=== PATIENT | male | born 1990 | race African-American/Black ===

== ENCOUNTER 2022-09-03 12:28 | Inpatient (IN) | payer OTHER, SELFPAY ==
[2022-09-03] VITALS (10 sets, daily range): BP systolic 114–162; BP diastolic 56–83; PULSE 66–88; RESP 15–18; TEMP 36.3–36.9; O2SAT 95–100; BMI 30.8; BMI 29.7
[2022-09-03 12:56] LABS: Add Manual Diff / Slide Review NO; Basophils Absolute Auto 100 /uL (0-100); Basophils Percent Auto 0.6 % (0-2); Eosinophils Absolute Auto 100 /uL (0-450); Eosinophils Percent Auto 0.6 % (2-4); Hematocrit 36.7 % (41-53); Hemoglobin 11.7 g/dL (13.5-17.5); Lymphocytes Absolute Auto 1700 /uL (1100-4500); Lymphocytes Percent Auto 11.6 % (25-40); Mean Corpuscular Hemoglobin 25.5 PG (26-34); Mean Corpuscular Volume 79.9 fL (80-100); Monocytes Absolute Auto 1200 /uL (0-900); Monocytes Percent Auto 7.9 % (3-14); Neutrophils Absolute Auto 11600 /uL (1500-7000); Neutrophils Percent Auto 79.3 % (50-75); Platelet Count 432 X10^3/uL (150-400); Red Blood Cell Count 4.59 X10^6/uL (4.5-5.9); Red Cell Distribution Width 14.5 % (11.6-14.8); White Blood Cell Count 14.7 X10^3/uL (4.5-11.0)
[2022-09-03 13:23] LABS: Alanine Aminotransferase 19 IU/L (<50); Albumin 4.5 g/dL (3.5-5.0); Alkaline Phosphatase 84 U/L (38-126); Aspartate Aminotransferase 21 IU/L (17-59); BUN Creatinine Ratio 11.5 (6-22); Bilirubin Total 0.6 mg/dL (0.2-1.3); Blood Urea Nitrogen 11 mg/dL (9-20); Calcium 9.4 mg/dL (8.4-10.2); Carbon Dioxide 28 mmol/L (22-32); Chloride 102 mmol/L (98-107); Estimated Glomerular Filt Rate > 60 mL/min (>60); Globulin 4.7 g/dL (1.7-4.1); Glucose 99 mg/dL (70-100); HEMOLYSIS < 15 (0-50); Lipase 83 U/L (23-300); Potassium 4.2 mmol/L (3.4-5.1); Sodium 142 mmol/L (137-145); Total Protein 9.2 g/dL (6.3-8.2)
--- NOTE | 2022-09-03 13:55 | DI.CT.S_ITS ---
PROCEDURE: CT ABDOMEN PELVIS W CON INDICATIONS: rule out appendicitis TECHNIQUE: After the administration of intravenous contrast, axial sections acquired from the lung bases to the pubic symphysis. Coronal and sagittal reformats were performed. For radiation dose reduction, the following was used: automated exposure control, adjustment of mA and/or kV according to patient size. COMPARISON: None. FINDINGS: Image quality: Excellent. Lung bases: Unremarkable. Heart: No significant findings. ABDOMEN: Liver: Unremarkable. Gallbladder: Gallbladder may contain depending gravel. No gallbladder wall thickening. Biliary ducts: Unremarkable. Pancreas: Unremarkable. Spleen: Unremarkable. Adrenal Glands: Unremarkable. Kidneys and Ureters: Unremarkable. Stomach and Bowel: There is extensive inflammatory change present in the right lower quadrant which appears to involve the cecum and distal ileum. Consider ruptured appendicitis. Also possible is distal ileitis and proximal colitis. The appendix is not with likely identified. Peritoneum: There is mild free fluid deep in the pelvis. No free air. Ventral Wall: No hernias. Abdominal Nodes: No retroperitoneal or mesenteric adenopathy by size criteria. Vessels: Aorta and inferior vena cava are normal in size. PELVIS: Pelvic Organs: Unremarkable. Bladder: Unremarkable. Pelvic Nodes: No enlarged lymph nodes. Miscellaneous: No hernias are seen. Bones: Unremarkable. IMPRESSION: 1. Extensive inflammation involving the cecum and distal ileum and surrounding fat in the right lower quadrant with associated free fluid in the pelvis. Suspect ruptured appendicitis. Also possible is distal ileitis and proximal colitis, possibly secondary to infectious or inflammatory etiologies. 2. There may be gravel in the gallbladder. Comment: Repeat imaging after oral contrast is administered, utilizing both oral and intravenous contrast may be helpful. Dictated by: Boogie Duke M.D. on 09/03/2022 at 14:40 Approved by: Boogie Duke M.D. on 09/03/2022 at 14:45
--- NOTE | 2022-09-03 14:55 | ED.ABDPAIN ---
HPI - Abdominal Pain <Omar Waddell PA-C - Last Filed: 09/03/22 15:17> General Chief Complaint: Abdominal Pain Stated Complaint: Possible Appe/Sent from [facility] Time Seen by Provider: 09/03/22 14:19 Source: patient Mode of arrival: Ambulatory History of Present Illness HPI narrative: This is an otherwise healthy 32-year-old male presents to the emergency department due to 3 days of right lower quadrant abdominal pain. Denies any fevers, nausea, vomiting, or any other concerning signs or symptoms. Sent here by [facility] to rule out appendicitis. Last ate breakfast at approximately 7:30 a.m. this morning. Related Data Home Medications Medication Instructions Recorded Confirmed acetaminophen 325 mg tablet 325 mg PO PRN PRN Pain (Scale 09/03/22 09/03/22 Score 1-3) ibuprofen 800 mg tablet 800 mg PO PRN PRN Pain (Scale 09/03/22 09/03/22 Score 1-3) Previous Rx's Medication Instructions Recorded amoxicillin 500 mg-potassium 1 tab PO BID #14 tabs 09/04/22 clavulanate 125 mg tablet (Augmentin) Allergies Allergy/AdvReac Type Severity Reaction Status Date / Time No Known Drug Allergies Allergy Verified 09/03/22 12:40 Review of Systems <Omar Waddell PA-C - Last Filed: 09/03/22 15:17> Review of Systems Narrative: GENERAL: Denies chills, fatigue, malaise, fever, sweats. HEENT: Denies sinus pain, ear pain, sore throat, difficulty swallowing, dizziness. RESPIRATORY: Denies dyspnea, cough, wheezing, hemoptysis, sputum. CARDIOVASCULAR: Denies chest pain, palpitations, orthopnea, edema, GASTROINTESTINAL: Right lower quadrant abdominal pain : Denies dysuria, frequency, incontinence, hematuria, urinary retention. MUSCULOSKELETAL: denies weakness, joint pain, or bony pain SKIN: Denies rash, skin lesions, or other NEUROLOGIC: Denies weakness, headache, numbness, change in speech, confusion, seizures, incoordination. PSYCHIATRIC: No concerning psychosocial issues. 12 point review of systems is negative except for those stated above Patient History <Omar Waddell PA-C - Last Filed: 09/03/22 15:17> Social History household members: spouse Smoking Status: Never smoker alcohol intake: current Smoking Status: Unknown if ever smoked alcohol intake frequency: holidays/special occasions only Substance Use Type: does not use Exam <Omar Waddell PA-C - Last Filed: 09/03/22 15:17> Narrative Exam Narrative: GENERAL: Well-developed patient, in mild distress. HEAD: Atraumatic. Normocephalic. EYES: Pupils equal round and reactive. Extraocular motions intact. No scleral icterus. No injection or drainage. ENT: Nose without bleeding, purulent drainage. Throat without erythema, tonsillar hypertrophy or exudate. Airway patent. NECK: Trachea midline. Non tender CARDIOVASCULAR: Regular rate and rhythm without murmurs, gallops, or rubs. RESPIRATORY: Clear to auscultation. Breath sounds equal bilaterally. No wheezes, rales, or rhonchi. GASTROINTESTINAL: Moderate tenderness to palpation to the right lower quadrant, nondistended EXTREMITIES: No edema or joint tenderness. BACK: Nontender without deformity or crepitance. No flank tenderness. NEURO: AOx3. SKIN: No rash or erythema of visible areas Initial Vital Signs Initial Vital Signs: Vital Signs Temperature 98.5 F 09/03/22 12:40 Pulse Rate 73 09/03/22 12:40 Respiratory Rate 15 09/03/22 12:40 Blood Pressure 162/69 H 09/03/22 12:40 Pulse Oximetry 99 09/03/22 12:40 Oxygen Delivery Method 09/03/22 12:40 <Monico Deleon MD - Last Filed: 09/09/22 09:16> Initial Vital Signs Initial Vital Signs: Vital Signs Temperature 98.5 F 09/03/22 12:40 Pulse Rate 73 09/03/22 12:40 Respiratory Rate 15 09/03/22 12:40 Blood Pressure 162/69 H 09/03/22 12:40 Pulse Oximetry 99 09/03/22 12:40 Oxygen Delivery Method 09/03/22 12:40 Course <Omar Waddell PA-C - Last Filed: 09/03/22 15:17> Orders Ordered: Discontinued Medications Acetaminophen (Acetaminophen 325 Mg Tablet) 650 mg PO Q6H [facility] Last Admin: 09/04/22 10:38 Dose: Not Given Documented By: Admin: 09/04/22 06:29 Dose: Not Given Documented By: Admin: 09/03/22 23:36 Dose: Not Given Documented By: Admin: 09/03/22 17:22 Dose: 650 mg Documented By: DARLENE Hydromorphone HCl (Hydromorphone 0.5 Mg Inj) 0.5 mg IV Q2H PRN PRN Reason: Pain, Moderate (4-6) Sodium Chloride (Normal Saline 0.9%) 1,000 mls @ 1,000 mls/hr IV BOLUS ONE Stop: 09/03/22 15:53 Last Infusion: 09/03/22 16:10 Dose: 0 mls/hr Documented By: Admin: 09/03/22 15:05 Dose: 1,000 mls/hr Documented By: MEGAN Piperacillin Sod/Tazobactam (Sod 4.5 gm/ Sodium Chloride) 100 mls @ 200 mls/hr IV NOW ONE Stop: 09/03/22 14:55 Last Infusion: 09/03/22 16:43 Dose: 0 mls/hr Documented By: Admin: 09/03/22 16:01 Dose: 200 mls/hr Documented By: MEGAN Piperacillin Sod/Tazobactam (Sod 3.375 gm/ Sodium Chloride) 100 mls @ 25 mls/hr IV Q8H [facility] Last Infusion: 09/04/22 13:20 Dose: 0 mls/hr Documented By: Admin: 09/04/22 08:23 Dose: 25 mls/hr Documented By: Infusion: 09/04/22 05:00 Dose: 0 mls/hr Documented By: Admin: 09/04/22 00:53 Dose: 25 mls/hr Documented By: Infusion: 09/03/22 21:25 Dose: 0 mls/hr Documented By: Admin: 09/03/22 17:21 Dose: 25 mls/hr Documented By: DARLENE Ketorolac Tromethamine (Ketorolac 30 Mg/Ml Vial) 30 mg IV Q8H [facility] Stop: 09/08/22 16:49 Last Admin: 09/04/22 08:22 Dose: 30 mg Documented By: Admin: 09/04/22 00:54 Dose: 30 mg Documented By: Admin: 09/03/22 17:21 Dose: 30 mg Documented By: DARLENE Naloxone HCl (Naloxone 0.4 Mg/Ml Vial) 0.2 mg IV Q2MIN PRN PRN Reason: Opiate Reversal Ondansetron HCl (Ondansetron 4 Mg/2 Ml Inj) 4 mg IV Q8HR PRN PRN Reason: Nausea And Vomiting Oxycodone HCl (Oxycodone Ir 5 Mg Tablet) 5 mg PO Q3H PRN PRN Reason: Pain, Moderate (4-6) Vital Signs Vital signs: Vital Signs - 8 hr 09/03/22 12:40 09/03/22 14:22 09/03/22 14:22 Temperature 98.5 F Pulse Rate 73 72 Respiratory Rate 15 Blood Pressure 162/69 H 126/59 L Pulse Oximetry 99 98 Oxygen Delivery Method Room Air 09/03/22 14:30 09/03/22 14:30 Temperature Pulse Rate 83 Respiratory Rate Blood Pressure 116/56 L Pulse Oximetry 99 Oxygen Delivery Method <Monico Deleon MD - Last Filed: 09/09/22 09:16> Orders Ordered: Discontinued Medications Acetaminophen (Acetaminophen 325 Mg Tablet) 650 mg PO Q6H [facility] Last Admin: 09/04/22 10:38 Dose: Not Given Documented By: Admin: 09/04/22 06:29 Dose: Not Given Documented By: Admin: 09/03/22 23:36 Dose: Not Given Documented By: Admin: 09/03/22 17:22 Dose: 650 mg Documented By: ARCHANAK Hydromorphone HCl (Hydromorphone 0.5 Mg Inj) 0.5 mg IV Q2H PRN PRN Reason: Pain, Moderate (4-6) Sodium Chloride (Normal Saline 0.9%) 1,000 mls @ 1,000 mls/hr IV BOLUS ONE Stop: 09/03/22 15:53 Last Infusion: 09/03/22 16:10 Dose: 0 mls/hr Documented By: Admin: 09/03/22 15:05 Dose: 1,000 mls/hr Documented By: RB Piperacillin Sod/Tazobactam (Sod 4.5 gm/ Sodium Chloride) 100 mls @ 200 mls/hr IV NOW ONE Stop: 09/03/22 14:55 Last Infusion: 09/03/22 16:43 Dose: 0 mls/hr Documented By: Admin: 09/03/22 16:01 Dose: 200 mls/hr Documented By: MEGAN Piperacillin Sod/Tazobactam (Sod 3.375 gm/ Sodium Chloride) 100 mls @ 25 mls/hr IV Q8H [facility] Last Infusion: 09/04/22 13:20 Dose: 0 mls/hr Documented By: Admin: 09/04/22 08:23 Dose: 25 mls/hr Documented By: Infusion: 09/04/22 05:00 Dose: 0 mls/hr Documented By: Admin: 09/04/22 00:53 Dose: 25 mls/hr Documented By: Infusion: 09/03/22 21:25 Dose: 0 mls/hr Documented By: Admin: 09/03/22 17:21 Dose: 25 mls/hr Documented By: DARLENE Ketorolac Tromethamine (Ketorolac 30 Mg/Ml Vial) 30 mg IV Q8H [facility] Stop: 09/08/22 16:49 Last Admin: 09/04/22 08:22 Dose: 30 mg Documented By: Admin: 09/04/22 00:54 Dose: 30 mg Documented By: Admin: 09/03/22 17:21 Dose: 30 mg Documented By: DARLENE Naloxone HCl (Naloxone 0.4 Mg/Ml Vial) 0.2 mg IV Q2MIN PRN PRN Reason: Opiate Reversal Ondansetron HCl (Ondansetron 4 Mg/2 Ml Inj) 4 mg IV Q8HR PRN PRN Reason: Nausea And Vomiting Oxycodone HCl (Oxycodone Ir 5 Mg Tablet) 5 mg PO Q3H PRN PRN Reason: Pain, Moderate (4-6) Vital Signs Vital signs: Vital Signs - 8 hr 09/03/22 12:40 09/03/22 14:22 09/03/22 14:22 Temperature 98.5 F Pulse Rate 73 72 Respiratory Rate 15 Blood Pressure 162/69 H 126/59 L Pulse Oximetry 99 98 Oxygen Delivery Method Room Air 09/03/22 14:30 09/03/22 14:30 Temperature Pulse Rate 83 Respiratory Rate Blood Pressure 116/56 L Pulse Oximetry 99 Oxygen Delivery Method MDM - Abdominal Pain <Omar Waddell PA-C - Last Filed: 09/03/22 15:17> Lab Data 09/03/22 12:45 09/03/22 12:45 Labs: Lab Results 09/03/22 09/03/22 09/03/22 Range/Units 12:45 12:45 15:15 WBC 14.7 H (4.5-11.0) X10^3/uL RBC 4.59 (4.5-5.9) X10^6/uL Hgb 11.7 L (13.5-17.5) g/dL Hct 36.7 L (41-53) % MCV 79.9 L (80-100) fL MCH 25.5 L (26-34) PG MCHC 32.0 (30-36) % RDW 14.5 (11.6-14.8) % Plt Count 432 H (150-400) X10^3/uL Neut % (Auto) 79.3 H (50-75) % Lymph % (Auto) 11.6 L (25-40) % [place] % (Auto) 7.9 (3-14) % Eos % (Auto) 0.6 L (2-4) % Baso % (Auto) 0.6 (0-2) % Neut # (Auto) 66418 H (5112-3815) /uL Lymph # (Auto) 1700 (6413-4520) /uL [place] # (Auto) 1200 H (0-900) /uL Eos # (Auto) 100 (0-450) /uL Baso # (Auto) 100 (0-100) /uL Sodium 142 (137-145) mmol/L Potassium 4.2 (3.4-5.1) mmol/L Chloride 102 (98-107) mmol/L Carbon Dioxide 28 (22-32) mmol/L BUN 11 (9-20) mg/dL Creatinine 0.96 (0.66-1.25) mg/dL Estimated GFR > 60 (>60) mL/min BUN/Creatinine Ratio 11.5 (6-22) Glucose 99 (70-100) mg/dL Calcium 9.4 (8.4-10.2) mg/dL Total Bilirubin 0.6 (0.2-1.3) mg/dL AST 21 (17-59) IU/L ALT 19 (<50) IU/L Alkaline Phosphatase 84 (38-126) U/L Total Protein 9.2 H (6.3-8.2) g/dL Albumin 4.5 (3.5-5.0) g/dL Globulin 4.7 H (1.7-4.1) g/dL Albumin/Globulin Ratio 1.0 (1.0-2.8) Lipase 83 (23-300) U/L SARS-CoV-2 (PCR) Negative (Negative) Point of care testing: Urine Dip Bedside Urine Glucose Negative Bedside Urine Bilirubin - Negative Bedside Urine Ketone - Negative Urine Specific [place] 1.015 Bedside Urine Occult Blood - Negative Bedside Urine pH 6.0 Bedside Urine Protein - Negative Bedside Urine Urobilinogen - Negative Bedside Urine Nitrite - Negative Bedside Urine Leukocytes - Negative Esterase Imaging Data CT scan - abdomen/pelvis: Radiologist's Impression: [address] [address] [address] Scan Report Signed Patient: Chris Pollard MR#: [id number] : 1990 Acct:[id number] Age/Sex: 32 / M Date of Service: 09/03/22 Loc: ED Accession Number: [id number] ?? Procedure: CT abdomen pelvis w con Ordering Provider: Monico Deleon MD PROCEDURE:? CT ABDOMEN PELVIS W CON ? INDICATIONS:? rule out appendicitis ? TECHNIQUE:? After the administration of intravenous contrast, axial sections acquired from the lung bases to the pubic symphysis.? Coronal and sagittal reformats were performed.? For radiation dose reduction, the following was used:? automated exposure control, adjustment of mA and/or kV according to patient size.? ? COMPARISON:? None. ? FINDINGS:? Image quality:? Excellent.? ? Lung bases:? Unremarkable. Heart:? No significant findings. ? ABDOMEN: Liver:? Unremarkable.? ? Gallbladder:? Gallbladder may contain depending gravel.? No gallbladder wall thickening. Biliary ducts:? Unremarkable.? ? Pancreas:? Unremarkable.? ? Spleen:? Unremarkable.? ? Adrenal Glands:? Unremarkable.? ? Kidneys and Ureters:? Unremarkable.? ? ? Stomach and Bowel:? There is extensive inflammatory change present in the right lower quadrant which appears to involve the cecum and distal ileum.? Consider ruptured appendicitis.? Also possible is distal ileitis and proximal colitis.? The appendix is not with likely identified. Peritoneum:? There is mild free fluid deep in the pelvis.? No free air.? ? Ventral Wall: ? No hernias.? Abdominal Nodes:? No retroperitoneal or mesenteric adenopathy by size criteria.? Vessels:? Aorta and inferior vena cava are normal in size.? ? PELVIS: Pelvic Organs:? Unremarkable.? ? Bladder:? Unremarkable.? ? Pelvic Nodes: No enlarged lymph nodes.? Miscellaneous: No hernias are seen. ? ? ? Bones:? Unremarkable.? IMPRESSION:? ? 1. Extensive inflammation involving the cecum and distal ileum and surrounding fat in the right lower quadrant with associated free fluid in the pelvis.? Suspect ruptured appendicitis.? Also possible is distal ileitis and proximal colitis, possibly secondary to infectious or inflammatory etiologies.? ? 2. There may be gravel in the gallbladder. ? Comment:? Repeat imaging after oral contrast is administered, utilizing both oral and intravenous contrast may be helpful.? ? Dictated by: Boogie Duke M.D. on 09/03/2022 at 14:40 ? ? Approved by: Boogie Duke M.D. on 09/03/2022 at 14:45 ? MDM Narrative Medical decision making narrative: MDM * differential diagnosis includes but not limited to appendicitis, gastroenteritis, cholecystitis * Prior records reviewed: None to review * My lab interpretation: Lab work significant for leukocytosis * My imgaing interpretation: CT showed findings concerning for ruptured appendix * Clinical Decision Rules/Scores evaluated: None * Independent discussions with: Discussed the case with general surgeon, Dr. Badilol ED Course: This is a 32-year-old male presents to the emergency department due to 3 day history of right lower quadrant pain. CT was ordered which showed the above findings concerning for ruptured appendix. Zosyn and fluids given. This was discussed with Dr. Badillo, general surgeon, who kindly accepted the patient for admission. Shared Decision Making: Discussed plan with patient who is comfortable with plan Social Considerations: None Disposition: Admit to General surgery <Monico Deleon MD - Last Filed: 09/09/22 09:16> Lab Data Labs: Lab Results 09/03/22 09/03/22 09/03/22 Range/Units 12:45 12:45 15:15 WBC 14.7 H (4.5-11.0) X10^3/uL RBC 4.59 (4.5-5.9) X10^6/uL Hgb 11.7 L (13.5-17.5) g/dL Hct 36.7 L (41-53) % MCV 79.9 L (80-100) fL MCH 25.5 L (26-34) PG MCHC 32.0 (30-36) % RDW 14.5 (11.6-14.8) % Plt Count 432 H (150-400) X10^3/uL Neut % (Auto) 79.3 H (50-75) % Lymph % (Auto) 11.6 L (25-40) % [place] % (Auto) 7.9 (3-14) % Eos % (Auto) 0.6 L (2-4) % Baso % (Auto) 0.6 (0-2) % Neut # (Auto) 11478 H (8000-0856) /uL Lymph # (Auto) 1700 (6121-1787) /uL [place] # (Auto) 1200 H (0-900) /uL Eos # (Auto) 100 (0-450) /uL Baso # (Auto) 100 (0-100) /uL Sodium 142 (137-145) mmol/L Potassium 4.2 (3.4-5.1) mmol/L Chloride 102 (98-107) mmol/L Carbon Dioxide 28 (22-32) mmol/L BUN 11 (9-20) mg/dL Creatinine 0.96 (0.66-1.25) mg/dL Estimated GFR > 60 (>60) mL/min BUN/Creatinine Ratio 11.5 (6-22) Glucose 99 (70-100) mg/dL Calcium 9.4 (8.4-10.2) mg/dL Total Bilirubin 0.6 (0.2-1.3) mg/dL AST 21 (17-59) IU/L ALT 19 (<50) IU/L Alkaline Phosphatase 84 (38-126) U/L Total Protein 9.2 H (6.3-8.2) g/dL Albumin 4.5 (3.5-5.0) g/dL Globulin 4.7 H (1.7-4.1) g/dL Albumin/Globulin Ratio 1.0 (1.0-2.8) Lipase 83 (23-300) U/L SARS-CoV-2 (PCR) Negative (Negative) Point of care testing: Urine Dip Bedside Urine Glucose Negative Bedside Urine Bilirubin - Negative Bedside Urine Ketone - Negative Urine Specific [place] 1.015 Bedside Urine Occult Blood - Negative Bedside Urine pH 6.0 Bedside Urine Protein - Negative Bedside Urine Urobilinogen - Negative Bedside Urine Nitrite - Negative Bedside Urine Leukocytes - Negative Esterase Discharge Plan Departure Patient Disposition: Admitted to Surgery Clinical Impression: Acute perforated appendicitis Admit Date/Time: 09/03/22 15:16 Admit Provider: Samir Badillo <Monico Deleon MD - Last Filed: 09/09/22 09:16> Cosign ED Attending Cosignature Attestation: I was immediately available in the department for consultation. ?This documentation has been reviewed and I agree with assessment and plan. Supervised by Monico Deleon MD
[2022-09-03] MEDS: SODIUM CHLORIDE 0.9% 1,000 ML 1000 ML IV (15:05)
[2022-09-03] MEDS: PIPERACILLIN/TAZO 4.5 GM in SODIUM CHLORIDE 0.9% 100 ML IV (16:01)
[2022-09-03 16:34] LABS: COVID19 -Nasal RAPID Negative (Negative)
[2022-09-03 16:55] LABS: Lactate (Lactic Acid) 1.6 mmol/L (0.7-2.1)
--- NOTE | 2022-09-03 17:15 | PM.HP.1 ---
History of Present Illness History of Present Illness Date Patient Seen: 09/03/22 Time Patient Seen: 17:15 Chief complaint: Possible Appe/Sent from [facility] Narrative: Mr. Pollard is a healthy 32-year-old man who is admitted for acute appendicitis with perforation. Over the past several days he developed abdominal pain becoming significantly worse today and within the right lower quadrant. Emergency room workup demonstrates a WBC 15, CT abdomen pelvis demonstrates perforated appendicitis with moderate amount of free fluid, phlegmon without abscess and significant inflammation of the ileum and cecum. No prior abdominal surgeries. Patient History Family & Social History Social History: household members spouse Prior Living Arrangements House Safety & Behavioral: Feels Safe in Current Yes Environment Been Physically Hurt or No Threatened By a Person Tobacco & Substance use: Smoking Status Never smoker alcohol intake current alcohol intake frequency holiday/special occasion Substance Use Type does not use Meds Home Medications and Allergies Allergies Allergy/AdvReac Type Severity Reaction Status Date / Time No Known Drug Allergies Allergy Verified 09/03/22 12:40 Exam Vital Signs (past 8 hours): - 09/03/22 12:40 09/03/22 14:22 09/03/22 14:22 Temperature 98.5 F Pulse Rate 73 72 Respiratory Rate 15 Blood Pressure 162/69 H 126/59 L Pulse Oximetry 99 98 Oxygen Delivery Method Room Air 09/03/22 14:30 09/03/22 14:30 09/03/22 14:47 Temperature Pulse Rate 83 Respiratory Rate Blood Pressure 116/56 L 126/58 L Pulse Oximetry 99 Oxygen Delivery Method 09/03/22 14:47 09/03/22 15:00 09/03/22 15:00 Temperature Pulse Rate 74 70 Respiratory Rate Blood Pressure 128/60 Pulse Oximetry 95 100 Oxygen Delivery Method 09/03/22 16:04 09/03/22 16:04 09/03/22 16:30 Temperature Pulse Rate 87 87 Respiratory Rate Blood Pressure 130/83 Pulse Oximetry 100 100 Oxygen Delivery Method 09/03/22 16:31 09/03/22 16:31 Temperature Pulse Rate 88 Respiratory Rate Blood Pressure 126/63 Pulse Oximetry 99 Oxygen Delivery Method Oxygen Delivery Method Room Air Narrative Exam Narrative: GENERAL: A well nourished, well developed gentleman appearing stated age, resting comfortably, in no acute distress. HEENT: Normocephalic, atraumatic. No scleral icterus NECK: Full range of motion. No evidence of cervical lymphadenopathy or JVD. CHEST: Rising symmetrically. No audible wheezes CARDIOVASCULAR: Warm and well perfused. Regular rate ABDOMEN: Focal peritonitis right lower quadrant d EXTREMITIES: Normal tone and without edema. NEUROLOGIC: Moving all extremities spontaneously. No gross motor deficits. Objective Labs 09/03/22 12:45 09/03/22 12:45 Labs: Laboratory Results - last 24 hr 09/03/22 09/03/22 09/03/22 12:45 12:45 15:15 WBC 14.7 H RBC 4.59 Hgb 11.7 L Hct 36.7 L MCV 79.9 L MCH 25.5 L MCHC 32.0 RDW 14.5 Plt Count 432 H Neut % (Auto) 79.3 H Lymph % (Auto) 11.6 L [place] % (Auto) 7.9 Eos % (Auto) 0.6 L Baso % (Auto) 0.6 Neut # (Auto) 58520 H Lymph # (Auto) 1700 [place] # (Auto) 1200 H Eos # (Auto) 100 Baso # (Auto) 100 Sodium 142 Potassium 4.2 Chloride 102 Carbon Dioxide 28 BUN 11 Creatinine 0.96 Estimated GFR > 60 BUN/Creatinine Ratio 11.5 Glucose 99 Lactate Calcium 9.4 Total Bilirubin 0.6 AST 21 ALT 19 Alkaline Phosphatase 84 Total Protein 9.2 H Albumin 4.5 Globulin 4.7 H Albumin/Globulin Ratio 1.0 Lipase 83 SARS-CoV-2 (PCR) Negative 09/03/22 15:45 WBC RBC Hgb Hct MCV MCH MCHC RDW Plt Count Neut % (Auto) Lymph % (Auto) [place] % (Auto) Eos % (Auto) Baso % (Auto) Neut # (Auto) Lymph # (Auto) [place] # (Auto) Eos # (Auto) Baso # (Auto) Sodium Potassium Chloride Carbon Dioxide BUN Creatinine Estimated GFR BUN/Creatinine Ratio Glucose Lactate 1.6 Calcium Total Bilirubin AST ALT Alkaline Phosphatase Total Protein Albumin Globulin Albumin/Globulin Ratio Lipase SARS-CoV-2 (PCR) Assessment & Plan Assessment and plan (1) Acute perforated appendicitis: Status: Acute Assessment & Plan narrative: 32-year-old man with symptoms and radiographic findings consistent with acute perforated appendicitis. CT personally reviewed demonstrates acute appendicitis with phlegmon and free fluid no drainable abscess. We discussed management of acute appendicitis including both medical and surgical therapy. Following discussion preference is to proceed with antibiotic therapy. -clear liquid diet -Zosyn -SCDs Time Spent With Patient Critical Care time: I spent a total of [] minutes of critical care time on this patient's care today; this time is exclusive of procedural time. Quality VTE Deep Vein Thrombosis/Pulmonary Embolism Present on Admission: No
[2022-09-03] MEDS: PIPERACILLIN/TAZO 3.375 GM in SODIUM CHLORIDE 0.9% 100 ML IV (17:21)
[2022-09-03] MEDS: KETOROLAC 30 MG/ML VIAL IV (17:21)
[2022-09-03] MEDS: ACETAMINOPHEN 325 MG TABLET 650 MG PO (17:22)
[2022-09-04] MEDS: PIPERACILLIN/TAZO 3.375 GM in SODIUM CHLORIDE 0.9% 100 ML IV ×2 (00:53→08:23)
[2022-09-04] MEDS: KETOROLAC 30 MG/ML VIAL IV ×2 (00:54→08:22)
[2022-09-04 00:55] VITALS: BP 127/76; PULSE 84; RESP 16; TEMP 37.2; O2SAT 100
[2022-09-04 06:22] VITALS: BP 112/57; PULSE 80; RESP 16; TEMP 36.6; O2SAT 98
--- NOTE | 2022-09-04 09:02 | P.PN_ITS ---
Subjective Subjective Date Patient Seen: 09/04/22 Time Patient Seen: 09:03 Interval history: Significant improvement in abdominal pain over the past 24 hours. Tolerated clear liquids. Requiring no narcotic medication overnight. Exam Vital Signs (past 8 hours): - 09/04/22 06:22 Temperature 98 F Pulse Rate 80 Respiratory Rate 16 Blood Pressure 112/57 L Pulse Oximetry 98 Oxygen Flow Rate 0 Oxygen Delivery Method Room Air Oxygen Flow Rate 0 Narrative Exam Narrative: General adult man alert oriented no acute distress Abdomen soft mildly tender right lower quadrant markedly improved since last exam. Objective Labs 09/03/22 12:45 09/03/22 12:45 Labs: Laboratory Results - last 24 hr 09/03/22 09/03/22 09/03/22 12:45 12:45 15:15 WBC 14.7 H RBC 4.59 Hgb 11.7 L Hct 36.7 L MCV 79.9 L MCH 25.5 L MCHC 32.0 RDW 14.5 Plt Count 432 H Neut % (Auto) 79.3 H Lymph % (Auto) 11.6 L Simpson % (Auto) 7.9 Eos % (Auto) 0.6 L Baso % (Auto) 0.6 Neut # (Auto) 62570 H Lymph # (Auto) 1700 Simpson # (Auto) 1200 H Eos # (Auto) 100 Baso # (Auto) 100 Sodium 142 Potassium 4.2 Chloride 102 Carbon Dioxide 28 BUN 11 Creatinine 0.96 Estimated GFR > 60 BUN/Creatinine Ratio 11.5 Glucose 99 Lactate Calcium 9.4 Total Bilirubin 0.6 AST 21 ALT 19 Alkaline Phosphatase 84 Total Protein 9.2 H Albumin 4.5 Globulin 4.7 H Albumin/Globulin Ratio 1.0 Lipase 83 SARS-CoV-2 (PCR) Negative Blood Type Antibody Screen 09/03/22 09/03/22 15:45 15:45 WBC RBC Hgb Hct MCV MCH MCHC RDW Plt Count Neut % (Auto) Lymph % (Auto) Simpson % (Auto) Eos % (Auto) Baso % (Auto) Neut # (Auto) Lymph # (Auto) Simpson # (Auto) Eos # (Auto) Baso # (Auto) Sodium Potassium Chloride Carbon Dioxide BUN Creatinine Estimated GFR BUN/Creatinine Ratio Glucose Lactate 1.6 Calcium Total Bilirubin AST ALT Alkaline Phosphatase Total Protein Albumin Globulin Albumin/Globulin Ratio Lipase SARS-CoV-2 (PCR) Blood Type A Negative Antibody Screen Negative [facility] Social History household members: spouse Smoking Status: Never smoker alcohol intake: current Assessment & Plan Assessment and plan (1) Acute perforated appendicitis: Status: Acute Assessment & Plan narrative: 32-year-old male with ruptured appendicitis admitted for non operative management with antibiotic therapy. He is doing well with non operative management has near complete resolution of abdominal pain tolerating diet. -regular diet -follow-up CBC -if white blood cell count is down trending and tolerates regular diet today then I anticipate discharge home on a course of Augmentin for 7 days. Time Spent With Patient Critical Care time: I spent a total of [] minutes of critical care time on this patient's care today; this time is exclusive of procedural time. Quality VTE Deep Vein Thrombosis/Pulmonary Embolism Present on Admission: No
[2022-09-04 09:06] LABS: Add Manual Diff / Slide Review NO; Basophils Absolute Auto 0 /uL (0-100); Basophils Percent Auto 0.3 % (0-2); Eosinophils Absolute Auto 100 /uL (0-450); Eosinophils Percent Auto 0.6 % (2-4); Hematocrit 34.6 % (41-53); Lymphocytes Absolute Auto 1000 /uL (1100-4500); Lymphocytes Percent Auto 9.3 % (25-40); Mean Corpuscular HGB Conc 31.8 % (30-36); Mean Corpuscular Hemoglobin 25.3 PG (26-34); Mean Corpuscular Volume 79.5 fL (80-100); Monocytes Absolute Auto 800 /uL (0-900); Monocytes Percent Auto 7.1 % (3-14); Neutrophils Absolute Auto 9300 /uL (1500-7000); Neutrophils Percent Auto 82.7 % (50-75); Platelet Count 377 X10^3/uL (150-400); Red Blood Cell Count 4.35 X10^6/uL (4.5-5.9); Red Cell Distribution Width 14.6 % (11.6-14.8); White Blood Cell Count 11.3 X10^3/uL (4.5-11.0)
[2022-09-04 09:19] VITALS: BP 109/59; PULSE 77; RESP 16; TEMP 36.8; O2SAT 99
--- NOTE | 2022-09-04 13:25 | PC.NURSE ---
Addendum entered by Chon Olvera R.N. 09/04/22 14:13: Left unit at approx 1410. Original Note: Dy shift: Paperwork signed and all questions answered. No pain or nausea today. Pt has all personal belongings and MD scripts sent electronic to Pt's pharmacy. He did complete the IV antibiotic prior to d/c today. Pt wants to ambulate to his ride. His Father will be driving him home. Awaiting the Fathers arrival. Will update note with d/c time.
--- NOTE | 2022-09-04 13:30 | DIET.CONS ---
Addendum entered by Zulma Lagunas 09/04/22 16:13: RD agrees with assessment below. Original Note: Dietary Consultation Note Admission Date: 09/03/2022 15:16 Assessment: 32 y/o M admitted for acute appendicitis with perforation. Consulted RD for MNA 9 (at risk for malnutrition). Per admission assessment, MNA 9 - moderate decrease in food intake, unsure wt loss, and psychological stress. Met with pt at bedside to discuss diet. Pt reports no recent appetite change or wt loss. UBW 104.5-109.1 kg. Diet recall: B: cereal OR egg and sausage OR bagel OR yogurt parfait. L: pasta meryl OR rice and chx. D: same as lunch. S: fruit (orange) OR nuts OR cheese. Fluid: water, coffee, 1 beer or glass of wine with dinner. Ht: 187.96 cm Wt: 105 kg BMI: 29.7 Last BM: 09/03/22 (09/03/22 17:00) MNA: 9 Chai Score: 20 Diet: 09/04/22 Lunch General (Regular) Diet Diet Modifications: Labs: RBC 4.35 X10^6/uL (4.5-5.9) L 09/04/22 08:45 Hgb 11.0 g/dL (13.5-17.5) L 09/04/22 08:45 Hct 34.6 % (41-53) L 09/04/22 08:45 Creatinine 0.96 mg/dL (0.66-1.25) 09/03/22 12:45 Lactate 1.6 mmol/L (0.7-2.1) 09/03/22 15:45 Nutrition Diagnosis: no nutrition diagnosis at this time. Interventions: discussed progression of diet as tolerated. Follow-up: consult prn. Electronically Signed by: Grazyna Araujo 09/04/22 13:30 Clinical Dietitian [address] [address]
== END 2022-09-04 14:13 | disposition home or self-care (01) | DRG 373 ==
LOC: ED 15:17 → AC 15:17
PROVIDERS: Emergency Medicine; Admitting Provider Surgery; Emergency Provider Physician Assistant Medical; Referring Provider Physician Assistant Medical; Visit Provider Surgery
DX: K35.32 Acute appendicitis with perforation, localized peritonitis, and gangrene, without abscess (principal); Z20.822 Contact with and (suspected) exposure to COVID-19
CPT/HCPCS: 36415; 74177; 80053; 81003; 83605; 83690; 85025; 86850; 86900; 86901; 87040; 87635; 96365; 99221; 99238; 99284; C9803; J1885; J2543; Q9967

== ENCOUNTER 2022-09-25 11:05 | Emergency (ER) | payer OTHER, SELFPAY ==
[2022-09-03 17:00] VITALS: BMI 29.7
[2022-09-25 11:39] VITALS: BP 133/69; PULSE 80; RESP 16; TEMP 36.3; O2SAT 97; BMI 30.2
--- NOTE | 2022-09-25 11:45 | DI.CT.S_ITS ---
PROCEDURE: CT ABDOMEN PELVIS W CON INDICATIONS: ? ruptured appy TECHNIQUE: After the administration of intravenous contrast, axial sections acquired from the lung bases to the pubic symphysis. Coronal and sagittal reformats were performed. For radiation dose reduction, the following was used: automated exposure control, adjustment of mA and/or kV according to patient size. COMPARISON: [facility], CT, CT ABDOMEN PELVIS W CON, 09/03/2022, 13:55. FINDINGS: Lung bases: No pleural effusion ABDOMEN: Liver: Unremarkable. Gallbladder: Unremarkable. Biliary ducts: Unremarkable. Pancreas: Unremarkable. Spleen: Unremarkable. Adrenal Glands: Unremarkable. Kidneys and Ureters: Unremarkable. GI tract and peritoneum: Interval worsening of inflammatory change in the right lower quadrant. A small right lower quadrant abscess is now present measuring approximately 3.3 x 2.0 centimeters (series 2, image 61). There is wall thickening of the cecum and terminal ileum. Significant fat stranding and fluid present along the course of the appendix. The right lower quadrant abscess is present along the inferior margin of the appendix. Small amount of right lower quadrant free fluid. No large volume pneumoperitoneum. Abdominal Nodes: No retroperitoneal or mesenteric adenopathy by size criteria. Vessels: Aorta and inferior vena cava are normal in size. PELVIS: Pelvic Organs: Unremarkable. Bladder: Unremarkable. Pelvic Nodes: No enlarged lymph nodes. Bones: Degenerative changes of the spine. IMPRESSION: Interval worsening of right lower quadrant inflammatory changes with development of a small abscess since the prior exam. Findings are likely related to acute appendicitis, possibly ruptured, but inflammatory change of the cecum and terminal ileum can also be seen in the setting of inflammatory bowel disease. Discussed with Dr. Herbert by Dr. Concepcion at 1254 hours on 09/25/2022 Dictated by: Kavin Concepcion M.D. on 09/25/2022 at 12:38 Approved by: Kavin Concepcion M.D. on 09/25/2022 at 12:59
[2022-09-25 12:03] LABS: Add Manual Diff / Slide Review NO; Basophils Absolute Auto 100 /uL (0-100); Basophils Percent Auto 0.6 % (0-2); Eosinophils Absolute Auto 0 /uL (0-450); Eosinophils Percent Auto 0.4 % (2-4); Hematocrit 33.5 % (41-53); Hemoglobin 10.7 g/dL (13.5-17.5); Lymphocytes Absolute Auto 1100 /uL (1100-4500); Lymphocytes Percent Auto 8.8 % (25-40); Mean Corpuscular HGB Conc 31.9 % (30-36); Mean Corpuscular Hemoglobin 25.2 PG (26-34); Monocytes Absolute Auto 1300 /uL (0-900); Monocytes Percent Auto 10.5 % (3-14); Neutrophils Absolute Auto 9700 /uL (1500-7000); Neutrophils Percent Auto 79.7 % (50-75); Platelet Count 337 X10^3/uL (150-400); Red Blood Cell Count 4.24 X10^6/uL (4.5-5.9); Red Cell Distribution Width 14.7 % (11.6-14.8); White Blood Cell Count 12.2 X10^3/uL (4.5-11.0)
[2022-09-25 12:17] LABS: Alanine Aminotransferase 21 IU/L (<50); Alkaline Phosphatase 76 U/L (38-126); Aspartate Aminotransferase 24 IU/L (17-59); BUN Creatinine Ratio 9.7 (6-22); Bilirubin Total 0.9 mg/dL (0.2-1.3); Blood Urea Nitrogen 10 mg/dL (9-20); Carbon Dioxide 28 mmol/L (22-32); Chloride 103 mmol/L (98-107); Estimated Glomerular Filt Rate > 60 mL/min (>60); Globulin 4.2 g/dL (1.7-4.1); Glucose 93 mg/dL (70-100); HEMOLYSIS < 15 (0-50); Lactate (Lactic Acid) 1.5 mmol/L (0.7-2.1); Lipase 75 U/L (23-300); Sodium 140 mmol/L (137-145); Total Protein 8.2 g/dL (6.3-8.2)
[2022-09-25 13:40] VITALS: BP 119/70; PULSE 60; RESP 18; O2SAT 99
--- NOTE | 2022-09-25 14:19 | ED.ABDPAIN ---
HPI - Abdominal Pain General Chief Complaint: Abdominal Pain Stated Complaint: Recurrent appendicitis T-2 Time Seen by Provider: 09/25/22 11:44 History of Present Illness HPI narrative: Patient is a healthy 32-year-old male who presents with ongoing right lower quadrant. He was admitted September 03 through the for ruptured appendicitis. Treated conservatively with antibiotics. 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 He was released upon return back to the [facility] he was instructed to see re-evaluated. He has mild right lower quadrant pain no fevers or chills today. No nausea vomiting or other symptoms. Related Data Home Medications Medication Instructions Recorded Confirmed ibuprofen 800 mg tablet 800 mg PO PRN PRN Pain (Scale 09/03/22 09/03/22 Score 1-3) Previous Rx's Medication Instructions Recorded docusate sodium 100 mg capsule 100 mg PO BID #30 caps 09/25/22 (Colace) docusate sodium 100 mg capsule 100 mg PO DAILY #30 caps 09/25/22 (Colace) hydrocodone 5 mg-acetaminophen 325 1 tab PO Q6H PRN pain #10 tabs 09/25/22 mg tablet hydrocodone 5 mg-acetaminophen 325 2 tab PO Q6H PRN pain #20 tabs 09/25/22 mg tablet levofloxacin 500 mg tablet 500 mg PO DAILY #7 tabs 09/25/22 levofloxacin 500 mg tablet 500 mg PO Q24H #7 tabs 09/25/22 metronidazole 500 mg tablet 500 mg PO Q8H 7 days #21 tabs 09/25/22 metronidazole 500 mg tablet 500 mg PO Q8H 7 days #21 tabs 09/25/22 ondansetron 4 mg disintegrating 4 mg PO Q6H PRN nausea and 09/25/22 tablet vomiting #30 tabs ondansetron 4 mg disintegrating 4 mg PO Q8H PRN nausea and 09/25/22 tablet vomiting #10 tabs Allergies Allergy/AdvReac Type Severity Reaction Status Date / Time No Known Drug Allergies Allergy Verified 09/03/22 12:40 Review of Systems Review of Systems ROS Unobtainable: All systems reviewed & are unremarkable except as noted in HPI and below Patient History Social History household members: spouse Smoking Status: Never smoker alcohol intake: current Smoking Status: Never smoker alcohol intake frequency: holidays/special occasions only Substance Use Type: does not use Exam Initial Vital Signs Initial Vital Signs: Vital Signs Temperature 97.4 F L 09/25/22 11:39 Pulse Rate 80 09/25/22 11:39 Respiratory Rate 16 09/25/22 11:39 Blood Pressure 133/69 09/25/22 11:39 Pulse Oximetry 97 09/25/22 11:39 Oxygen Delivery Method Room Air 09/25/22 11:39 GENERAL: Alert pleasant well-appearing 32 and in no acute distress. HEENT: Head atraumatic,EOMI, pupils reactive, face symmetric, moist mucous membranes CARDIOVASCULAR: Regular rate and rhythm without murmurs, rubs or gallops. RESPIRATORY: Breath sounds equal bilaterally, no wheezes rales or rhonchi. ABDOMEN: Soft, mild right lower quadrant pain no guarding no rebound EXTREMITIES: Normal range of motion, no clubbing or edema. Neurovascularly intact NEUROLOGICAL: Alert and oriented x4. SKIN: Warm, dry, no laceration, no petechiae, no rashes or lesions. Course Orders Ordered: ED Orders 09/25/22 11:45 CT abdomen pelvis w con Stat 09/25/22 11:56 CBC Auto Diff [Complete Blood Count AUTO DIFF] Stat CMP [Comprehensive Metabolic Panel] Stat Lactate (Lactic Acid) Stat Lipase Stat 09/25/22 14:32 Blood Culture Stat 09/25/22 15:09 COVID19 -Nasal RAPID/Pre-Proc Stat Vital Signs Vital signs: Vital Signs - 8 hr 09/25/22 11:39 09/25/22 15:10 09/25/22 13:40 Temperature 97.4 F L 97.6 F Pulse Rate 80 62 60 Respiratory Rate 16 16 18 Blood Pressure 133/69 119/65 119/70 Pulse Oximetry 97 99 99 Oxygen Delivery Method Room Air Room Air Room Air 09/25/22 16:03 09/25/22 16:04 09/25/22 16:04 Temperature Pulse Rate 74 64 Respiratory Rate Blood Pressure 119/58 L Pulse Oximetry 100 100 Oxygen Delivery Method MDM - Abdominal Pain Lab Data 09/25/22 11:56 09/25/22 11:56 Labs: Lab Results 09/25/22 09/25/22 09/25/22 Range/Units 11:56 11:56 11:56 WBC 12.2 H (4.5-11.0) X10^3/uL RBC 4.24 L (4.5-5.9) X10^6/uL Hgb 10.7 L (13.5-17.5) g/dL Hct 33.5 L (41-53) % MCV 79.0 L (80-100) fL MCH 25.2 L (26-34) PG MCHC 31.9 (30-36) % RDW 14.7 (11.6-14.8) % Plt Count 337 (150-400) X10^3/uL Neut % (Auto) 79.7 H (50-75) % Lymph % (Auto) 8.8 L (25-40) % Montague % (Auto) 10.5 (3-14) % Eos % (Auto) 0.4 L (2-4) % Baso % (Auto) 0.6 (0-2) % Neut # (Auto) 9700 H (5839-6545) /uL Lymph # (Auto) 1100 (7362-6167) /uL Montague # (Auto) 1300 H (0-900) /uL Eos # (Auto) 0 (0-450) /uL Baso # (Auto) 100 (0-100) /uL Sodium 140 (137-145) mmol/L Potassium 4.0 (3.4-5.1) mmol/L Chloride 103 (98-107) mmol/L Carbon Dioxide 28 (22-32) mmol/L BUN 10 (9-20) mg/dL Creatinine 1.03 (0.66-1.25) mg/dL Estimated GFR > 60 (>60) mL/min BUN/Creatinine Ratio 9.7 (6-22) Glucose 93 (70-100) mg/dL Lactate 1.5 (0.7-2.1) mmol/L Calcium 9.0 (8.4-10.2) mg/dL Total Bilirubin 0.9 (0.2-1.3) mg/dL AST 24 (17-59) IU/L ALT 21 (<50) IU/L Alkaline Phosphatase 76 (38-126) U/L Total Protein 8.2 (6.3-8.2) g/dL Albumin 4.0 (3.5-5.0) g/dL Globulin 4.2 H (1.7-4.1) g/dL Albumin/Globulin Ratio 1.0 (1.0-2.8) Lipase 75 (23-300) U/L SARS-CoV-2 (PCR) (Negative) 09/25/22 Range/Units 15:09 WBC (4.5-11.0) X10^3/uL RBC (4.5-5.9) X10^6/uL Hgb (13.5-17.5) g/dL Hct (41-53) % MCV (80-100) fL MCH (26-34) PG MCHC (30-36) % RDW (11.6-14.8) % Plt Count (150-400) X10^3/uL Neut % (Auto) (50-75) % Lymph % (Auto) (25-40) % Montague % (Auto) (3-14) % Eos % (Auto) (2-4) % Baso % (Auto) (0-2) % Neut # (Auto) (3126-7653) /uL Lymph # (Auto) (7987-2066) /uL Montague # (Auto) (0-900) /uL Eos # (Auto) (0-450) /uL Baso # (Auto) (0-100) /uL Sodium (137-145) mmol/L Potassium (3.4-5.1) mmol/L Chloride (98-107) mmol/L Carbon Dioxide (22-32) mmol/L BUN (9-20) mg/dL Creatinine (0.66-1.25) mg/dL Estimated GFR (>60) mL/min BUN/Creatinine Ratio (6-22) Glucose (70-100) mg/dL Lactate (0.7-2.1) mmol/L Calcium (8.4-10.2) mg/dL Total Bilirubin (0.2-1.3) mg/dL AST (17-59) IU/L ALT (<50) IU/L Alkaline Phosphatase (38-126) U/L Total Protein (6.3-8.2) g/dL Albumin (3.5-5.0) g/dL Globulin (1.7-4.1) g/dL Albumin/Globulin Ratio (1.0-2.8) Lipase (23-300) U/L SARS-CoV-2 (PCR) Negative (Negative) Imaging Data CT scan - abdomen/pelvis: Radiologist's Impression: PROCEDURE:? CT ABDOMEN PELVIS W CON ? INDICATIONS:? ? ruptured appy ? TECHNIQUE:? After the administration of intravenous contrast, axial sections acquired from the lung bases to the pubic symphysis.? Coronal and sagittal reformats were performed.? For radiation dose reduction, the following was used:? automated exposure control, adjustment of mA and/or kV according to patient size.? ? COMPARISON:? [facility], CT, CT ABDOMEN PELVIS W CON, 09/03/2022, 13:55. ? FINDINGS:? ? Lung bases:? No pleural effusion ? ABDOMEN: Liver:? Unremarkable.? ? Gallbladder:? Unremarkable.? ? Biliary ducts:? Unremarkable.? ? Pancreas:? Unremarkable.? ? Spleen:? Unremarkable.? ? Adrenal Glands:? Unremarkable.? ? Kidneys and Ureters:? Unremarkable.? ? ? GI tract and peritoneum:? Interval worsening of inflammatory change in the right lower quadrant.? A small right lower quadrant abscess is now present measuring approximately 3.3 x 2.0 centimeters (series 2, image 61).? There is wall thickening of the cecum and terminal ileum.? Significant fat stranding and fluid present along the course of the appendix.? The right lower quadrant abscess is present along the inferior margin of the appendix.? Small amount of right lower quadrant free fluid.? No large volume pneumoperitoneum. ? Abdominal Nodes:? No retroperitoneal or mesenteric adenopathy by size criteria.? Vessels:? Aorta and inferior vena cava are normal in size.? ? PELVIS: Pelvic Organs:? Unremarkable.? ? Bladder:? Unremarkable.? ? Pelvic Nodes: No enlarged lymph nodes.? ? Bones:? Degenerative changes of the spine. ? ? IMPRESSION:? ? Interval worsening of right lower quadrant inflammatory changes with development of a small abscess since the prior exam.? Findings are likely related to acute appendicitis, possibly ruptured, but inflammatory change of the cecum and terminal ileum can also be seen in the setting of inflammatory bowel disease. ? Discussed with Dr. Herbert by Dr. Concepcion at 1254 hours on 09/25/2022 ? ? Dictated by: Kavin Concepcion M.D. on 09/25/2022 at 12:38 ? ? MDM Narrative Medical decision making narrative: Patient 32-year-old male who has had ongoing ruptured appendicitis for about 1 month now. Previously admitted here treated conservatively discharge admitted over in hand and returns today. He is mild leukocytosis at 12. He has continuation of inflammatory process on CT. Minimally tender right lower quadrant. However this is kind a chronic ongoing issue. Dr. Frazier in ED to evaluate patient. At this time recommends 2 weeks of outpatient antibiotics with close outpatient follow-up and elective surgery after 14 days of antibiotics. Discharge Plan Departure Patient Disposition: Home Clinical Impression: Chronic appendicitis Instructions: Appendicitis Activity Restrictions/Additional Instructions: *You have been diagnosed with appendicitis *What to do: At this time please follow surgery recommendations. 2 full weeks of antibiotics and follow up with her *Continue to take medications as directed Dr. Frazier is writing you all antibiotics and pain medication *Follow up with your primary care provider in 2-3 days or call [phone] Follow-up with Dr. Frazier *Return to ER if you should have increasing pain vomiting fever or any new, worsening or concerning symptoms Prescriptions: New metronidazole 500 mg tablet 500 mg PO Q8H 7 Days Qty: 21 0RF hydrocodone-acetaminophen 5-325 mg tablet 2 tab PO Q6H PRN (Reason: pain) Qty: 20 0RF Rx Instructions: May take 1-2 tabs as needed every 6 hours for pain docusate sodium [Colace] 100 mg capsule 100 mg PO BID Qty: 30 0RF Rx Instructions: Take while taking antibiotics and pain medication to prevent constipation. If you feel constipated call the office for advice or take an [id number] remedy. ondansetron 4 mg tablet,disintegrating 4 mg PO Q6H PRN (Reason: nausea and vomiting) Qty: 30 0RF Rx Instructions: Take if needed with pain medication for nausea. You may increase to 2 tabs every 6 hours if 1 does not help. levofloxacin 500 mg tablet 500 mg PO Q24H Qty: 7 0RF levofloxacin 500 mg tablet 500 mg PO DAILY Qty: 7 0RF metronidazole 500 mg tablet 500 mg PO Q8H 7 Days Qty: 21 0RF hydrocodone-acetaminophen 5-325 mg tablet 1 tab PO Q6H PRN (Reason: pain) Qty: 10 0RF ondansetron 4 mg tablet,disintegrating 4 mg PO Q8H PRN (Reason: nausea and vomiting) Qty: 10 0RF docusate sodium [Colace] 100 mg capsule 100 mg PO DAILY Qty: 30 0RF Continued ibuprofen 800 mg tablet 800 mg PO PRN MDD 3000MG PRN (Reason: Pain (Scale Score 1-3)) Discontinued acetaminophen 325 mg tablet 325 mg PO PRN PRN (Reason: Pain (Scale Score 1-3)) amoxicillin-pot clavulanate [Augmentin] 500-125 mg tablet 1 tab PO BID Qty: 14 0RF Referrals: Teresa Frazier MD [Physician] - (Please call with questions/concerns. 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 Office will call Wednesday to schedule surgery. Please call if there is not improvement or if anything seems worse. ) Provider,Lorena SOTO [Primary Care Provider] - Stand Alone Forms: Patient Portal/API
[2022-09-25 15:10] VITALS: BP 119/65; PULSE 62; RESP 16; TEMP 36.4; O2SAT 99
[2022-09-25 15:26] LABS: COVID19 -Nasal RAPID Negative (Negative)
[2022-09-25 16:03] VITALS: PULSE 74; O2SAT 100
[2022-09-25 16:04] VITALS: BP 119/58; PULSE 64; O2SAT 100
[2022-09-25 17:27] VITALS: BP 120/89; PULSE 72; O2SAT 99
--- NOTE | 2022-09-25 18:00 | PM.CN ---
History of Present Illness Consult details Date Patient Seen: 09/25/22 Chief complaint: Recurrent appendicitis T-2 Requesting provider: Daysi Herbert Narrative: Mr. Glover is a 32-year-old male who has been seen in [facility] for a ruptured appendicitis. He was treated with antibiotics and an interval appendectomy was planned. 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 During his stay in [place] he started to have right lower quadrant pain and was admitted to a hospital there. He was in the hospital for several days and received antibiotics. He was sent home with a course of oral antibiotics and has about 3 days left on that. He presents to the emergency room today because he started to have some right lower quadrant pain it is worse at night in particular and just continues to be troublesome for him. Further he was advised in [place] that if he should continue to have pain he needs to present to a physician here in the [place] states and so that is why he came to the emergency room today. CT scan reveals a small 2 x 3 cm abscess around the appendix. The interval seems to have worsened since the initial CT scan however I do not have the CT scans from [facility] to compare this episode with. I suspect that he had this abscess in [facility] and that it is being treated appropriately. He has not taken anything for pain besides ibuprofen as needed. Meds Home Medications and Allergies Home Medications Medication Instructions Recorded Confirmed Type ibuprofen 800 mg tablet 800 mg PO PRN PRN Pain (Scale 09/03/22 09/03/22 History Score 1-3) docusate sodium 100 mg capsule 100 mg PO BID #30 caps 09/25/22 Rx (Colace) docusate sodium 100 mg capsule 100 mg PO DAILY #30 caps 09/25/22 Rx (Colace) hydrocodone 5 mg-acetaminophen 325 1 tab PO Q6H PRN pain #10 tabs 09/25/22 Rx mg tablet hydrocodone 5 mg-acetaminophen 325 2 tab PO Q6H PRN pain #20 tabs 09/25/22 Rx mg tablet levofloxacin 500 mg tablet 500 mg PO DAILY #7 tabs 09/25/22 Rx levofloxacin 500 mg tablet 500 mg PO Q24H #7 tabs 09/25/22 Rx metronidazole 500 mg tablet 500 mg PO Q8H 7 days #21 tabs 09/25/22 Rx metronidazole 500 mg tablet 500 mg PO Q8H 7 days #21 tabs 09/25/22 Rx ondansetron 4 mg disintegrating 4 mg PO Q6H PRN nausea and 09/25/22 Rx tablet vomiting #30 tabs ondansetron 4 mg disintegrating 4 mg PO Q8H PRN nausea and 09/25/22 Rx tablet vomiting #10 tabs Allergies Allergy/AdvReac Type Severity Reaction Status Date / Time No Known Drug Allergies Allergy Verified 09/03/22 12:40 Exam Vital Signs (past 8 hours): - 09/25/22 11:39 09/25/22 15:10 09/25/22 13:40 Temperature 97.4 F L 97.6 F Pulse Rate 80 62 60 Respiratory Rate 16 16 18 Blood Pressure 133/69 119/65 119/70 Pulse Oximetry 97 99 99 Oxygen Delivery Method Room Air Room Air Room Air 09/25/22 16:03 09/25/22 16:04 09/25/22 16:04 Temperature Pulse Rate 74 64 Respiratory Rate Blood Pressure 119/58 L Pulse Oximetry 100 100 Oxygen Delivery Method 09/25/22 17:27 Temperature Pulse Rate 72 Respiratory Rate Blood Pressure 120/89 Pulse Oximetry 99 Oxygen Delivery Method Room Air Oxygen Delivery Method Room Air Const General: cooperative, healthy appearing and comfortable Nutritional Appearance: well nourished and other (Strong healthy fit 32-year-old male) Orientation: alert, awake and oriented x3 HENMT Head: normal to inspection Resp Effort & Inspection: normal respiratory effort and able to speak in complete sentences Cardio Pulses: radial pulses present GI Palpation: soft and tender (There is tenderness to deep palpation in the right lower quadrant.) Objective Labs 09/25/22 11:56 09/25/22 11:56 Labs: Laboratory Results - last 24 hr 09/25/22 09/25/22 09/25/22 11:56 11:56 11:56 WBC 12.2 H RBC 4.24 L Hgb 10.7 L Hct 33.5 L MCV 79.0 L MCH 25.2 L MCHC 31.9 RDW 14.7 Plt Count 337 Neut % (Auto) 79.7 H Lymph % (Auto) 8.8 L Mcpherson % (Auto) 10.5 Eos % (Auto) 0.4 L Baso % (Auto) 0.6 Neut # (Auto) 9700 H Lymph # (Auto) 1100 Mcpherson # (Auto) 1300 H Eos # (Auto) 0 Baso # (Auto) 100 Sodium 140 Potassium 4.0 Chloride 103 Carbon Dioxide 28 BUN 10 Creatinine 1.03 Estimated GFR > 60 BUN/Creatinine Ratio 9.7 Glucose 93 Lactate 1.5 Calcium 9.0 Total Bilirubin 0.9 AST 24 ALT 21 Alkaline Phosphatase 76 Total Protein 8.2 Albumin 4.0 Globulin 4.2 H Albumin/Globulin Ratio 1.0 Lipase 75 SARS-CoV-2 (PCR) 09/25/22 15:09 WBC RBC Hgb Hct MCV MCH MCHC RDW Plt Count Neut % (Auto) Lymph % (Auto) Mcpherson % (Auto) Eos % (Auto) Baso % (Auto) Neut # (Auto) Lymph # (Auto) Mcpherson # (Auto) Eos # (Auto) Baso # (Auto) Sodium Potassium Chloride Carbon Dioxide BUN Creatinine Estimated GFR BUN/Creatinine Ratio Glucose Lactate Calcium Total Bilirubin AST ALT Alkaline Phosphatase Total Protein Albumin Globulin Albumin/Globulin Ratio Lipase SARS-CoV-2 (PCR) Negative PFSH Social History household members: spouse Tobacco & Substance Use Smoking Status: Never smoker alcohol intake: current Assessment & Plan Assessment and plan (1) Chronic appendicitis: Status: Acute (2) Acute perforated appendicitis: Status: Acute (3) Appendiceal abscess: Status: Acute Assessment & Plan narrative: I have recommended that he get a full 14 days worth of antibiotics. Given that he has been treated nonoperatively and had a recurrence I really do not think that we should leave him off antiobiotics for too long of a time. Though I would like to get this abscess under better control it the small size usually it will get better with antibiotics and I will have him follow-up with my office for scheduling an interval appendectomy in a timely manner. He can be discharged from the emergency room with 7 more days of antibiotics and some real pain medicine as well as Colace to prevent constipation and Zofran as needed because he said the Percocet has made him nauseous in the past. Additionally if his pain should get worse or he has any fevers I advised for him to call our office phone number even after hours and reach out to our surgeon on-call. Time Spent With Patient Critical Care time: I spent a total of [] minutes of critical care time on this patient's care today; this time is exclusive of procedural time.
== END 2022-09-25 17:43 | disposition home or self-care (01) ==
PROVIDERS: Emergency Provider Emergency Medicine
DX: K36 Other appendicitis (principal); Z20.822 Contact with and (suspected) exposure to COVID-19
CPT/HCPCS: 36415; 74177; 80053; 83605; 83690; 85025; 87040; 87635; 99284; C9803; Q9967

== ENCOUNTER → 2022-10-06 14:18 | Outpatient (CLI) | payer OTHER, SELFPAY ==
[2022-09-03 17:00] VITALS: BMI 29.7
[2022-10-06 14:49] LABS: Add Manual Diff / Slide Review NO; Basophils Absolute Auto 100 /uL (0-100); Basophils Percent Auto 0.6 % (0-2); Eosinophils Absolute Auto 100 /uL (0-450); Eosinophils Percent Auto 1.2 % (2-4); Hematocrit 33.6 % (41-53); Hemoglobin 10.8 g/dL (13.5-17.5); Lymphocytes Absolute Auto 1300 /uL (1100-4500); Lymphocytes Percent Auto 14.6 % (25-40); Mean Corpuscular Volume 78.1 fL (80-100); Monocytes Absolute Auto 800 /uL (0-900); Monocytes Percent Auto 9.1 % (3-14); Neutrophils Absolute Auto 6600 /uL (1500-7000); Neutrophils Percent Auto 74.5 % (50-75); Platelet Count 376 X10^3/uL (150-400); Red Cell Distribution Width 14.9 % (11.6-14.8); White Blood Cell Count 8.8 X10^3/uL (4.5-11.0)
[2022-10-06 15:01] LABS: BUN Creatinine Ratio 11.1 (6-22); Blood Urea Nitrogen 11 mg/dL (9-20); Calcium 8.7 mg/dL (8.4-10.2); Carbon Dioxide 29 mmol/L (22-32); Chloride 105 mmol/L (98-107); Estimated Glomerular Filt Rate > 60 mL/min (>60); Glucose 93 mg/dL (70-100); HEMOLYSIS < 15 (0-50); Potassium 4.1 mmol/L (3.4-5.1); Sodium 141 mmol/L (137-145)
== END ==
PROVIDERS: Referring Provider Surgery; Visit Provider Surgery
DX: K35.33 Acute appendicitis with perforation, localized peritonitis, and gangrene, with abscess (principal); K36 Other appendicitis
CPT/HCPCS: 36415; 80048; 85025

== ENCOUNTER → 2022-10-07 15:48 | Outpatient (CLI) | payer OTHER, SELFPAY ==
[2022-09-03 17:00] VITALS: BMI 29.7
--- NOTE | 2022-10-07 15:49 | DI.CT.S_ITS ---
PROCEDURE: CT CHEST ABD PEL W CON INDICATIONS: f/u appendix, increasing pain TECHNIQUE: After the administration of oral and intravenous contrast, axial sections acquired from the supraclavicular neck to the pubic symphysis. Coronal and sagittal reformats were performed. For radiation dose reduction, the following was used: automated exposure control, adjustment of mA and/or kV according to patient size. COMPARISON: None. FINDINGS: Image quality: Could. CHEST: Lower Neck: No enlarged lymph nodes. Thyroid: Within normal limits. Axillae: No enlarged lymph nodes. Chest Wall: Gynecomastia. Lungs and Airways: No consolidation or suspicious nodules. Airways are clear. Pleura: No pneumothorax or pleural effusions. Heart: Heart size is normal. No pericardial effusion. Thoracic Vessels: The aorta and pulmonary arteries demonstrate normal size. Mediastinum and Bryanna: No enlarged lymph nodes. Esophagus: No wall thickening. No hiatal hernia. ABDOMEN: Liver: Unremarkable. Gallbladder: Unremarkable. Biliary ducts: Unremarkable. Pancreas: Unremarkable. Spleen: Unremarkable. Adrenal Glands: Unremarkable. Kidneys and Ureters: No hydronephrosis. Stomach and Bowel: Ill-defined inflammatory change at the right lower quadrant in the region of the appendix. Overall this is not significantly changed. This may involve the underside of the abdominal wall, (2/112). No small bowel obstruction. Somewhat prominent stool in the colon. Peritoneum: No gross pneumoperitoneum is seen. No ascites. Ventral Wall: No hernia. Abdominal Nodes: Shotty lymph nodes in the right lower quadrant. Likely reactive. Vessels: Aorta and inferior vena cava are normal in size. PELVIS: Pelvic Organs: Unremarkable. Bladder: Unremarkable. Pelvic Nodes: No enlarged lymph nodes. Miscellaneous: No inguinal hernias are seen. Bones: No suspicious lesion. IMPRESSION: 1. Ill-defined inflammatory change in the right lower quadrant is not significantly changed. This could be due to appendicitis or terminal ileitis. 2. Prominent stool in the colon. No small bowel obstruction. 3. Lungs are clear. Dictated by: Armond Hong M.D. on 10/07/2022 at 16:51 Approved by: Armond Hong M.D. on 10/07/2022 at 17:00
== END ==
PROVIDERS: Referring Provider Surgery; Visit Provider Surgery
DX: K35.33 Acute appendicitis with perforation, localized peritonitis, and gangrene, with abscess (principal); K36 Other appendicitis
CPT/HCPCS: 71260; 74177; Q9967

== ENCOUNTER 2022-10-09 12:00 | Day surgery (SDC) | payer OTHER, SELFPAY ==
[2022-09-03 17:00] VITALS: BMI 29.7
[2022-10-09] VITALS (10 sets, daily range): BP systolic 91–109; BP diastolic 57–73; PULSE 60–83; RESP 16–30; TEMP 36.3–36.5; O2SAT 97–100; BMI 29.5
--- NOTE | 2022-10-09 | PATH_ITS ---
[facility] Accession Number: [id number] No. of containers..02 Tissue . 01 Material submitted: . PART A: small bowel - TERMINAL ILEUM/ CECAL INFLAMMATORY MASS BIOPSY PART B: colon - TRANSVERSE COLON PLAQUE BIOSPY . 01 Diagnosis: A. Terminal Ileum/Cecal Inflammatory Mass, Biopsy: Severely active enteritis with ulcer and granulation tissue. Negative for CMV antigen and HSV1/2 antigens by immunohistochemistry. Negative for granulomas, dysplasia and malignancy. . B. Transverse Colon, Plaque, Biopsy: Colonic mucosa with a prominent benign lymphoid aggregate and associated with mild active inflammation and reactive epithelial changes. Please see comment. Negative for granulomas, dysplasia and malignancy. [facility] 10/15/2022 1755 Local . 01 Comment: A. The terminal ileum biopsy shows active ileitis with ulceration and granulation tissue. No viral cytopathic effects or parasitic organisms are identified. Immunohistochemical stains for CMV antigen and HSV 1/2 antigen are negative. No granulomas are identified. Features suggestive of chronic ileitis, including pseudopyloric metaplasia, are not seen. The differential diagnosis includes infection, medication related mucosal injury and Crohn's disease. . B. The transverse colon plaque biopsy shows a prominent benign lymphoid aggregate with overlying cryptitis. Adjacent colonic mucosa shows preserved architecture without neutrophilic activity. No viral cytopathic effects, parasitic organisms or granulomas are identified. The differential diagnosis includes infection, medication related mucosal injury, trauma/prolapse and idiopathic inflammatory bowel disease. . 01 Electronically signed: . Laurie Gallagher MD, Pathologist NPI- [id number] . 01 Gross description: . Part A: TERMINAL ILEUM/ CECAL INFLAMMATORY MASS BIOPSY: Received in formalin are multiple fragment(s) of green[place], soft tissue measuring 1.6 x 0.5 x 0.1 cm in aggregate submitted entirely in 1 cassette(s) Part B: TRANSVERSE COLON PLAQUE BIOSPY: Received in formalin are multiple fragment(s) of greenfield, soft tissue measuring 1.2 x 0.4 x 0.1 cm in aggregate submitted entirely in 1 cassette(s) /CPE 10/10/2022 1111 Local . 01 Microscopic: . A. Immunohistochemical stains were performed to evaluate for CMV antigen and HSV1/2 antigen respectively and are all negative. The control stain showed appropriate reactivity. . B. Additional levels were examined. . * This test was developed and its performance characteristics determined by [facility]. It has not been cleared or approved by the U.S. Food and Drug Administration. The FDA has determined that such clearance or approval is not necessary. This test is used for clinical purposes. It should not be regarded as investigational or for research. . 01 Pathologist provided ICD-10: K50.00 . 01 CPT . 053318, 710947, N89501, Z60691 Specimen Comment: A courtesy copy of this report has been sent to [facility] Performed at: 01 [facility] [address] [place] [address], [place], [place] [id number] MD Bharath Cobb MD Phone: [phone]
--- NOTE | 2022-10-09 11:54 | PM.HP.1 ---
History of Present Illness History of Present Illness Date Patient Seen: 10/09/22 Chief complaint: SDC Narrative: Please see consultation from emergency room dated 09/25/2022. Mr. Burton Pollard is a patient known to me who originally was seen by Dr. Badillo several weeks ago. Was diagnosed with appendicitis and a phlegmonous inflammatory change was seen by the appendix and therefore he was treated for perforated appendicitis and the plan was to have an interval appendectomy. In the interim his job required a visit to [facility]. Unfortunately during his stay in [facility] he had a flare-up of right lower quadrant pain had a CT scan and was treated in the hospital there. It sounds like he was again treated for appendicitis given antibiotics and told to follow up for interval appendectomy in the [facility]. When he returned he was still taking the antibiotics but was having persistent right lower quadrant pain and presented to the [facility] Emergency room when I was on-call. CT scan was done again at that time and no loculated or localized fluid collection that would be amenable to percutaneous drainage was seen but there was still inflammation around the appendix and in the right lower quadrant. For this reason we decided to continue him on antibiotics and book him for a appendectomy as soon as we could. He was scheduled for this procedure last week but the OR was down and the case was canceled. Because he was still having right lower quadrant pain and was finishing his antibiotic course I recommended another CT scan to follow-up. This CT scan was performed on Wednesday of this week. On the scan it seemed like there was not much interval improvement in the inflammatory process in spite of several rounds of adequate antibiotics. Additionally the inflammation seems to be creeping up the terminal ileum and after discussing with the radiologist's there is a high suspicion of Crohn's ileitis. Interestingly Burton says that today his pain is much improved and he is feeling okay. The prep went well. Patient History Family & Social History Social History: household members spouse Tobacco & Substance use: Smoking Status Never smoker alcohol intake current alcohol intake frequency holiday/special occasion Substance Use Type does not use Meds Home Medications and Allergies Home Medications Medication Instructions Recorded Confirmed Type ibuprofen 800 mg tablet 800 mg PO PRN PRN Pain (Scale 09/03/22 10/09/22 History Score 1-3) docusate sodium 100 mg capsule 100 mg PO BID #30 caps 09/25/22 10/09/22 Rx (Colace) docusate sodium 100 mg capsule 100 mg PO DAILY #30 caps 09/25/22 Rx (Colace) hydrocodone 5 mg-acetaminophen 325 1 tab PO Q6H PRN pain #10 tabs 09/25/22 Rx mg tablet levofloxacin 500 mg tablet 500 mg PO DAILY #7 tabs 09/25/22 10/09/22 Rx hydrocodone 5 mg-acetaminophen 325 2 tab PO Q6H PRN pain #20 tabs 10/02/22 10/09/22 Rx mg tablet levofloxacin 500 mg tablet 500 mg PO Q24H #5 tabs 10/02/22 10/02/22 Rx Allergies Allergy/AdvReac Type Severity Reaction Status Date / Time No Known Drug Allergies Allergy Verified 09/03/22 12:40 Exam Const General: cooperative, healthy appearing and comfortable HENMT Head: normal to inspection Resp Effort & Inspection: normal respiratory effort and able to speak in complete sentences GI Palpation: soft and tender (Very mild tenderness to deep palpation in the right lower quadrant) Assessment & Plan Assessment and plan (1) Terminal ileitis: Status: Acute Assessment & Plan narrative: Mr. Pollard presents today for screening colonoscopy I discussed the risks benefits and alternatives including but not limited to perforation of the colon and an incomplete exam she fully understands these risks and would like to proceed. Time Spent With Patient Critical Care time: I spent a total of [] minutes of critical care time on this patient's care today; this time is exclusive of procedural time.
[2022-10-09] MEDS: LACTATED RINGERS 1,000 ML 100 ML IV ×2 (12:27→14:32)
--- NOTE | 2022-10-09 16:29 | PM.OP.COLON ---
Procedure & Clinicians Study performed: Colonoscopy Same procedure as scheduled: Yes Indications: Terminal ileitis Surgeon: Teresa Frazier Procedure Notes Procedure in detail: Patient was taken to the endoscopy suite placed in a left lateral decubitus position. A time-out was performed. With the help of an anesthesiologist, conscious sedation was induced. A digital rectal exam was performed and there were some anal papillae but no masses or strictures. The colonoscope was then introduced into the anal canal and advanced through to the cecum. In the region of the terminal ileum there was a large inflamed area there was an ulcerated portion with some degree of healing and surrounded pedunculated inflammatory pseudopolyps. A photograph was obtained of what I believed to be the appendiceal orifice though due to the amount of inflammation it was difficult to be totally sure. I additionally obtained multiple photographs of the inflammatory process around the terminal ileum and cecum. I think the terminal ileum was surrounded in this ulcer is an inflammatory area. I could not specifically intubate the terminal ileum but I took plenty of biopsies all around the ulcer is area and of the pseudo polyps. In addition, aphthous ulcers which looked very characteristic (small white plaque-like lesions) were seen throughout the colon. Photographs were obtained. Several of these were biopsied in the region of the transverse, descending and sigmoid colon and sent for pathology. Specimen(s): other (1. Terminal ileum/cecal inflammatory mass 2. Transverse colon plaque biopsies) Post-procedure Recommendations: High fiber diet and Will call with biopsy results
== END 2022-10-09 16:01 | disposition home or self-care (01) ==
PROVIDERS: Referring Provider Surgery; Visit Provider Surgery
PROC: 0DJD8ZZ Inspection of Lower Intestinal Tract, Via Natural or Artificial Opening Endoscopic (ICD-10-PCS; CPT 45378; principal; 2022-10-09 13:00)
DX: K50.00 Crohn's disease of small intestine without complications (principal)
CPT/HCPCS: 45380

== ENCOUNTER → 2023-11-24 09:05 | Outpatient (CLI) | payer OTHER, SELFPAY ==
[2022-09-03 17:00] VITALS: BMI 29.7
--- NOTE | 2023-11-24 09:06 | DI.US.S_ITS ---
PROCEDURE: US ABDOMEN LIMITED INDICATIONS: Cyst on right anterior rib TECHNIQUE: Real-time focused scanning was performed of the abdomen, with image documentation. COMPARISON: [facility], CT, CT ABDOMEN PELVIS WITH CONTRAST, 12/12/2022, 12:33. FINDINGS: Targeted ultrasound of the right rib demonstrates mild rib irregularity. No overlying soft tissue mass. IMPRESSION: Targeted ultrasound of the right posterior rib demonstrates mild rib irregularity, suggestive of a remote fracture. No soft tissue mass identified Dictated by: Julius Meek M.D. on 11/24/2023 at 11:23 Approved by: Julius Meek M.D. on 11/24/2023 at 11:26
== END ==
PROVIDERS: Referring Provider General Practice; Visit Provider General Practice
DX: R07.81 Pleurodynia (principal)
CPT/HCPCS: 76705